=== PATIENT | female | born 1990 | race Caucasian/White ===

== ENCOUNTER 2016-07-20 09:17 | Outpatient (CLI) | payer OTHER ==
[~2016-07-20 09:17] MED LIST: PERCOCET1 TA1 PO
== END 2016-07-20 23:00 ==
LOC: LAB SRH 09:17
DX: Z33.1 Pregnant state, incidental (principal)
CPT/HCPCS: 90074; 90197; 95059

== ENCOUNTER 2016-09-22 14:40 | Outpatient (CLI) | payer OTHER ==
--- NOTE | 2016-09-22 16:38 | DIAGNOSTIC IMAGING REPORT ---
PROCEDURE: US COMPLETE PELVIC INDICATION: LT PELVIC PAIN TECHNIQUE: Transabdominal champion scale and color Doppler sonographic images. COMPARISON: CT abdomen/pelvis 08/28/2015 and pelvic ultrasound 02/20/2014 FINDINGS: There is a single intrauterine with low-lying placenta, heart rate 167 bpm and normal closed cervix. There is a 2.1 cm left ovarian corpus luteum cyst with normal vascular flow. The patient status post right oophorectomy. Appendix not visualized and that there is a small amount of free fluid the right adnexa. IMPRESSION: 1. 2.1 cm left ovarian corpus luteum cyst with vascular flow present to the left ovary. 2. Small amount of free fluid in the right adnexa but no evidence of and right lower quadrant pathological process 3. Results discussed with Dr. Rousseau
--- NOTE | 2016-09-22 16:40 | DIAGNOSTIC IMAGING REPORT ---
PROCEDURE: US ABDOMEN ULTRASOUND-COMPLETE INDICATION: LT ABD PAIN TECHNIQUE: Alanis scale and color Doppler sonographic images of the abdomen were obtained. COMPARISON: CT abdomen/pelvis 08/28/2015. FINDINGS: Liver, spleen, pancreas and gallbladder are normal. Normal CBD measures 3.5 mm. Negative Morin's sign. Aorta and IVC are patent. Normal hepatopetal flow. Right kidney measures 11.7 cm with mild prominence of the collecting system secondary to . Normal left kidney measures 11 cm. IMPRESSION: 1. Mild prominence of the right renal collecting system secondary to patient's . 2. Results discussed with Dr. Rousseau
== END 2016-09-22 23:00 ==
LOC: US SRH 14:40
DX: R10.9 Unspecified abdominal pain (principal); N83.12 Corpus luteum cyst of left ovary

== ENCOUNTER 2016-10-10 07:56 | Outpatient (CLI) | payer OTHER ==
--- NOTE | 2016-10-10 14:38 | DIAGNOSTIC IMAGING REPORT ---
PROCEDURE: US OB DETAILED ANATOMIC INDICATION: Check dates and anatomy. TECHNIQUE: Alanis scale, color, and spectral Doppler images of the second trimester gravid uterus were obtained. COMPARISON: Compared to pelvic ultrasound 09/22/2016. FINDINGS: There is a viable intrauterine in breech oblique position. Placenta is posterior and there is no evidence of previa. Normal amniotic fluid and cervix length (4.0 cm). anatomic survey was performed. There is a a left ventricular intracardiac echogenic focus. The rest of the anatomic survey is within normal limits including brain and ventricles, facial structures and orbits (to the extent visualized), nuchal region, spine, chest diaphragm, four-chamber heart, cardiac outflow tracts (to the extent visualized), abdomen, stomach, kidneys, three-vessel cord insertion, pelvis and urinary bladder. Upper and lower extremities are present. BPD 4.0 cm (18.3 weeks), HC 15.5 cm (18.3 weeks), AC 13.8 cm (19.3 weeks), FL 2.9 cm (19.0 weeks). There is mild dilation of the maternal right renal collecting system (most likely physiologic during ). IMPRESSION: 1. Viable intrauterine at 18.7 weeks menstrual age (plus or minus 1.5 weeks). CARLOS is 03/08/2017. 2. Breech oblique position. 3. There is a left ventricular intracardiac echogenic focus which most likely represents an incidental finding. While this can be associated with trisomy 21, the rest of the anatomic survey is normal, and there is nothing to suggest an underlying abnormality. 4. Mild dilation of the maternal right renal collecting system (most likely physiologic during ).
== END 2016-10-10 23:00 ==
LOC: US SRH 07:56
DX: O32.2XX0 Maternal care for transverse and oblique lie, not applicable or unspecified (principal); Z3A.18 18 weeks gestation of pregnancy

== ENCOUNTER 2016-11-14 08:00 | Outpatient (CLI) | payer OTHER ==
--- NOTE | 2016-11-14 18:07 | DIAGNOSTIC IMAGING REPORT ---
PROCEDURE: US OB RE-EVALUATION INDICATION: Check growth and dates. Assess echogenic cardiac focus. TECHNIQUE: Alanis scale, color and spectral Doppler images of the gravid uterus. COMPARISON: Comparison is made to obstetric ultrasound 10/10/2016. FINDINGS: There is a viable intrauterine in breech position. Placenta is posterior and there is no evidence of previa. Amniotic fluid index is 12.9 cm (40th percentile). Normal cervix length (4.2 cm). There are borderline elevated cord Doppler ratios measuring 3.4 - 4.6 (upper limits of normal 4.3). There is a persistent isolated echogenic cardiac focus in the left cardiac ventricle which most likely represents an incidental finding. The rest of the anatomic survey is within normal limits. BPD 5.5 cm (22.7 weeks), HC 21.2 cm (23.3 weeks), AC 18.5 cm (23.3 weeks), FL 4.2 cm of the 23.7 weeks). IMPRESSION: 1. Viable intrauterine at 23.3 weeks menstrual age (plus or minus 2 weeks). CARLOS based on today's study is 03/11/2017. Normal growth. 2. Breech position. 3. Persistent left ventricular echogenic cardiac focus is most most likely an incidental finding (no evidence of underlying abnormality). 4. Borderline or mildly elevated cord Doppler ratios measuring 3.4 - 4.6 (upper limits of normal 4.3). As such, limited obstetric ultrasound in 1-2 weeks is recommended to further evaluate. 5. Findings discussed with the patient and called to Dr. Adam Ross.
== END 2016-11-14 23:00 ==
LOC: US SRH 08:00
DX: O32.1XX0 Maternal care for breech presentation, not applicable or unspecified (principal); Z3A.23 23 weeks gestation of pregnancy

== ENCOUNTER 2016-11-28 08:00 | Outpatient (CLI) | payer OTHER ==
--- NOTE | 2016-11-28 10:37 | DIAGNOSTIC IMAGING REPORT ---
PROCEDURE: US OB LIMITED INDICATION: F/U ELEVATED CORD DOPPLER TECHNIQUE: Transabdominal champion scale and color Doppler imaging was obtained of the gravid uterus. COMPARISON: OB ultrasound 11/14/2016 FINDINGS: Single live intrauterine is in vertex presentation. Regular heart rate at 153 beats per minute. Placenta is posterior and fundal and has a normal appearance without previa or abruption. The cervix is closed and measures 3.5 cm in length. Amniotic fluid volume is subjectively normal. Cord Doppler normal today. Normal kidneys. IMPRESSION: 1. Normal cord Doppler.
== END 2016-11-28 23:00 ==
LOC: US SRH 08:00
DX: Z34.90 Encounter for supervision of normal pregnancy, unspecified, unspecified trimester (principal); Z3A.00 Weeks of gestation of pregnancy not specified